=== PATIENT | female | born 2000 | race Caucasian/White ===

== ENCOUNTER 2022-03-14 13:35 | Emergency (ER) | payer MEDICAID, OTHER, SELFPAY ==
[2022-03-14 15:38] LABS: #Basophils 0.1 thou/uL (0.0-0.2); #Eosinphils 0.1 thou/uL (0.0-0.7); #Lymphocytes 1.5 thou/uL (1.20-3.40); #Monocytes 0.7 thou/uL (0.11-0.59); #Neutrophils 8.7 thou/uL (1.40-6.50); %Basophils 0.5 % (0.0-1.0); %Eosinophils 0.9 % (0.0-10.0); %Lymphocytes 13.1 % (28.0-48.0); %Monocytes 6.7 % (0.0-4.0); %Neutrophils 78.9 % (31.0-61.0); Hemoglobin 13.9 g/dL (12.0-16.0); Mean Corpuscular HGB CONC 33.4 g/dL (32.0-36.0); Mean Corpuscular Hemoglobin 31.1 pg (25.0-35.0); Mean Corpuscular Volume 93.2 fL (78.0-98.0); Mean Platelet Volume 7.1 fL (7.4-10.4); Platelet Count 307 thou/uL (130-400); RBC Distribution Width 11.4 % (11.5-14.5); Red Blood Cell (RBC) Count 4.49 mill/uL (4.00-5.20)
[2022-03-14 15:53] LABS: BHCG - Serum POSITIVE (NEGATIVE); Pregs Control Background? CLEAR/WHITE (CLR/WHITE); Pregs Control Bar Appear? YES (CONTROL BAR)
[2022-03-14 16:01] LABS: Bacteria/HPF None Seen HPF (None Seen); Bilirubin Negative (Negative); Blood, Urine Negative (Negative); Clarity Clear (Clear); Glucose, Urine (Dipstick) Normal (Negative); Ketone, Urine Negative (Negative); Leukocyte 25 Leu/uL (Negative); Nitrite Negative (Negative); Protein, Urine (Dipstick) Negative (Neg-Trace); RBC/HPF 0-3 HPF (0-3); Specific Gravity, Urine 1.014 (1.002-1.036); Squamous Epithelial 0-3 HPF (0-3); Urobilinogen Normal mg/dL (Less than 2)
[2022-03-14 16:03] LABS: ALT (SGPT) 13 U/L (8-55); AST (SGOT) 18 U/L (5-30); Albumin 4.4 g/dL (3.5-5.0); Alkaline Phosphatase 60 U/L (40-100); Anion Gap 12 mmol/L (10-20); BUN (Urea Nitrogen) 7 mg/dL (8.4-21.0); Bilirubin, Total 0.7 mg/dL (0.2-1.2); Calc. Creatinine Clearance 0 mL/min (70-130); Calcium 9.6 mg/dL (7.8-10.44); Carbon Dioxide 21 mmol/L (22-29); Chloride 105 mmol/L (98-107); Estimated GFR 114; Globulin 3.5 g/dL (2.4-3.5); Glucose 97 mg/dL (70-105); Potassium 3.4 mmol/L (3.5-5.1); Protein, Total 7.9 g/dL (6.0-8.3); Sodium 135 mmol/L (136-145)
[2022-03-14] MEDS ORDERED: Acetaminophen 500 MG TAB ONE (16:38)
== END 2022-03-14 17:50 | disposition home or self-care (01) ==
LOC: ERS 13:35
DX: O20.0 Threatened abortion (principal); Z3A.01 Less than 8 weeks gestation of pregnancy
CPT/HCPCS: 36415; 76856; 80053; 81003; 81015; 84702; 84703; 85025; 86900; 86901; 90384; 96372